=== PATIENT | male | born 1935 | race Caucasian/White ===

== ENCOUNTER 2017-01-10 02:15 | Inpatient (IN) | payer OTHER, MEDICARE ==
[~2017-01-10] VITALS: Ht 167.6 cm; Wt 72.6 kg
[~2017-01-10 02:15] MED LIST: LEVOTHYROXINE125 MCG PO; NAMZARIC 14 MG1 EACH PO
--- NOTE | 2017-01-10 08:05 | Admission Core Measures ---
Admission Meds I reviewed the following Meds: Current Medications Sig/Sah Start time Last Medication Dose Stop Time Status Admin Acetaminophen 975 MG ONCE 01/10 0000 NR (Tylenol) 01/10 2359 Cefazolin Sodium 2,000 MG ONCE 01/10 NR (Kefzol-Ancef Inj) 01/10 2359 Oxycodone HCl 10 MG ONCE 01/10 0000 NR (Roxicodone) 01/10 2359 Acute Coronary Syndrome Inclusion Criteria ACS Diagnosis No Inpatient Core Measures LDL Reminder: If No, please order W/I first 24hr of stay Congestive Heart Failure Inclusion Criteria CHF Diagnosis No Cerebrovascular accident Inclusion Criteria CVA/TIA Diagnosis No Inpatient Core Measures Bedside Swallow Eval Reminder: If BSE failed, place ST order Antithrombotic Reminder: Order Antithrombotic Medication by end of day 2 Antithrombotic Reminder: Document Reason Antithrombotic Not ordered by end of day 2 AFIB/Flutter Reminder: If Present, add to problem list AFIB/Flutter Reminder: Order Anticoag Medication for pts with AFIB/Flutter Atherosclerosis Reminder: If Present, add to problem list LDL Reminder: If No, please order W/I first 24hr of stay PT Order Reminder: If No, please order Venous thromboembolism Inpatient Core Measures VTE Risk Factors: Age > 40, Surgery No [facility] VTE prophylaxis d/t No contraindications No VTE Pharm Prophylaxis d/t No contraindications Inclusion Criteria - Per Current guidelines, there needs to be overlap - treatment for the first 5 days of Warfarin therapy. - Parenteral Anticoagulation (IV or SC) needs to be - given along with Warfarin therapy. VTE Diagnosis No VTE Type NONE VTE Confirmed by (Test) NONE Problem List As ranked by this Provider includes Assessment & Plan 1. Degenerative joint disease 2. Status post total hip replacement, left HOME MEDS Home Med List Aspirin (Ecotrin*) 81 MG TABLET.DR 1 TAB PO DAILY PROPHO (Reported) Levothyroxine Sodium 125 MCG TABLET 1 TAB PO DAILY HYPOTHYROID (Reported) Memantine HCl/Donepezil HCl (Namzaric 14 MG-10 MG Capsule) 14 MG-10 MG CAP.SPR.24 1 TAB PO DAILY DEMENTIA (Reported)
--- NOTE | 2017-01-10 08:17 | Surg Short-stay <48hrs Dis Sum ---
Visit Information Visit Dates Admission Date: 01/10/17 Discharge Date: 01/11/2017 Surgical Short Stay DC Summary Admission Diagnosis: Joint pain Final Diagnosis: Same, s/p Left total hip replacement Procedure(s): Left GEORGINA - see operative report Summary/Significant Findings: Pt underwent a Left total hip arthroplasty on 01/10 and tolerated the procedure well. In the PACU he was noted to have tachycardia to the 120 therefore an EKG was performed which revealed some questionable ST changes and cardiology - Dr Lewis was consulted. He was brought to the tele floor to be monitored overnight. His serial ekg's and troponins were negative and he was cleared for DC from a cardiology standpoint. Postoperatively he was able to void spontaneously, his pain was well controlled on oral medication and he was cleared by PT to be discharged home with services. Condition at Discharge: good Discharge Disposition: home health services Discharge instructions provided to patient/family: Yes Post discharge follow-up plan: Appointment set with Dr Schultz. FU with PCP within 2 weeks of dc
[2017-01-10] MEDS ORDERED: ASPIRIN EC325 M2 PO (08:20)
[2017-01-10] MEDS ORDERED: COLACE100 M1 PO (08:20)
[2017-01-10] MEDS ORDERED: MS CONTIN15 M2 PO (08:20)
[2017-01-10] MEDS ORDERED: DILAUDID2 M1 PO (08:20)
[2017-01-10] MEDS ORDERED: MIRALAX119 GM PO (08:20)
--- NOTE | 2017-01-10 08:24 | Patient Discharge Instructions ---
Discharge Instructions General Discharge Information You were seen/treated for: Joint pain You had these procedures: Left total hip replacement Watch for these problems: temp>101, increased redness or drainage of wounds Do not soak the wound: Yes Other wound care: Keep incisions clean and dry, may shower no bathing Special Instructions: Follow up with primary care physician within two weeks of discharge follow up with Dr Jarvis in 6 weeks. aspirin 325mg twice per day for 3 weeks watch for signs of infection (redness of the hip, worsening pain, fever or flu like illness) . call with any concerns. Diet Continue normal diet: Yes Activity Activity Self Limited: Yes Activity Limited to: Weight bear as tolerated Acute Coronary Syndrome Inclusion Criteria At DC or during hospital stay patient has or had the following: ACS DIAGNOSIS No Discharge Core Measures Meds if any: Prescribed or Continued at Discharge Meds if any: NOT Prescribed or Continued at Discharge Congestive Heart Failure Inclusion Criteria At DC or during hospital stay patient has or had the following: CHF DIAGNOSIS No Discharge Core Measures Meds if any: Prescribed or Continued at Discharge Meds if any: NOT Prescribed or Continued at Discharge Cerebrovascular accident Inclusion Criteria At DC or during hospital stay patient has or had the following: CVA/TIA Diagnosis No Discharge Core Measures Meds if any: Prescribed or Continued at Discharge Meds if any: NOT Prescribed or Continued at Discharge Venous thromboembolism Inclusion Criteria VTE Diagnosis No VTE Type NONE VTE Confirmed by (Test) NONE Discharge Core Measures - Per Current guidelines, there needs to be overlap - treatment for the first 5 days of Warfarin therapy. - If discharged on Warfarin prior to 5 days of - overlap therapy, the patient will need to be - assessed for post discharge needs including - *Post discharge parental anticoagulation - *Warfarin and/or parental anticoagulation education - *Follow up date to check INR post discharge At least 5 days overlap therapy as Inpatient No Meds if any: Prescribed or Continued at Discharge Note: Overlap Therapy is Warfarin and Anticoagulant Meds if any: NOT Prescribed or Continued at Discharge
--- NOTE | 2017-01-10 10:32 | RADIOLOGY REPORT ---
EXAMINATION: XR HIP, LEFT CLINICAL INFORMATION: Status post left hip replacement. COMPARISON: None TECHNIQUE: Two views of the left hip. FINDINGS: Prosthetic components of the left total hip arthroplasty are appropriately aligned. No periprosthetic fracture. Gas from recent surgery is present in the surrounding soft tissues. IMPRESSION: Normal postoperative appearance of the left total hip prosthesis.
--- NOTE | 2017-01-10 13:15 | Cons- Cardiology ---
General Information and HPI Consulting Request Date of Consult: 01/10/17 Requested By: XENIA CROWELL MD Reason for Consult: Question abnormal EKG in a patient immediately status post hip replacement surgery. Source of Information: patient, old records Exam Limitations: dementia History of Present Illness: The patient is an 81-year-old man who is here for elective left hip replacement. He has underlying dementia and history is difficult to obtain from the patient. However he did have extensive preoperative outpatient evaluation which is documented in his chart. His medical evaluation was done by Dr. Ben Agee on 12/24/2016. This documented that from a cardiac standpoint he had moderate valvular aortic stenosis by echo as well as dementia and some other noncardiac issues. He was also sent for cardiology evaluation which he had by Dr. Dwain Weiner on 01/07/2017. He had an echocardiogram on 11/09/2016 showing normal left ventricular systolic function and moderate aortic stenosis with peak gradient of 42 mmHg and mean gradient 21 mmHg, and a calculated valve area 1.2 cm. He had a stress test on 01/04/2017 which was a Lexiscan myocardial perfusion imaging study and was read as normal. His baseline EKG showed some PACs. Apparently during the surgery he had PACs on the monitor and there is question of some ST segment changes. In the recovery room the patient is comfortable. He has no complaints. He denies any chest pain or shortness of breath. He has very little understanding of his underlying cardiac issues and basically doesn't remember much of his medical history. Allergies/Medications Allergies: Coded Allergies: No Known Allergies (01/04/17) Home Med List: Aspirin (Ecotrin*) 325 MG TABLET.DR 1 TAB PO BID blood thinner Docusate Sodium (Colace) 100 MG CAPSULE 1 CAP PO BID constipation Hydromorphone HCl (Dilaudid) 2 MG TABLET 1-2 TAB PO Q4P PRN PAIN Levothyroxine Sodium 125 MCG TABLET 1 TAB PO DAILY HYPOTHYROID (Reported) Memantine HCl/Donepezil HCl (Namzaric 14 MG-10 MG Capsule) 14 MG-10 MG CAP.SPR.24 1 TAB PO DAILY DEMENTIA (Reported) Morphine Sulfate (Ms Contin) 15 MG TABLET.ER 1 TAB PO BID PAIN Polyethylene Glycol 3350 (Miralax) 17 GRAM/DOSE POWDER 17 GM PO DAILY constipation mix with water, juice, soda, coffee or tea Review of Systems Review of Systems: No complaints at this time in the review of systems Past History Medical History Neurological: dementia Cardiovascular: aortic stenosis Musculoskeletal: osteoarthritis Surgical History Surgical History: hip replacement Exam & Diagnostic Data Vital Signs and I&O Vital signs in the recovery room are normal Physical Exam: The patient is alert and pleasant and confused HEENT exam is normal Neck veins not distended Carotids are normal Chest is clear Heart reveals a slightly irregular rhythm, grade 2 to 3/6 systolic ejection murmur at the base Extremities reveal good pulses and no edema Labs/Sage Results: Laboratory Tests 01/10 1220 Chemistry Troponin I (<0.11 ng/ml) < 0.01 Diagnostic Data EKG Results Postoperative EKG shows sinus rhythm at a rate of 91 with moderate number of PACs. There is a small incomplete right bundle branch block. There is early precordial transition. There is minimal anterior ST depression. CXR Results Not done Assessment/Plan Assessment/Plan The patient is an 81-year-old man with dementia and underlying moderate aortic stenosis who just underwent successful left hip replacement. He was said to have some arrhythmias and possibly some ST segment changes during surgery. On evaluation in the recovery room he is hemodynamically stable. He is having some atrial ectopy on the monitor but no evidence of atrial fibrillation. He has a nonspecifically abnormal electrocardiogram. I don't think there is anything acute going on from a cardiac standpoint. However, I would like to watch him on the monitor overnight while he is undergoing his early rehabilitation. If he has nothing more than just PACs on the monitor and negative serial troponins then he can be discharged home tomorrow as per plan. Copies To: SHAWN DELA CRUZ,MILY; KYRIE DELA CRUZ,BEN Otto; SOCRATES DELA CRUZ,XENIA Consult Acknowledgment - Thank you for your consult request.
--- NOTE | 2017-01-10 13:36 | PN- Orthopedic ---
Subjective Subjective: Post op check Pt awake and alert without complaints. No pain. Has already voided spontaneously and stood next to his bed - no ambulating yet. In PACU he has been tachycardic - currently HR is 77 - Denies any sob or chest pain Objective Vital Signs and I&Os HR 77 BP 112/68 RR 16 Sat 97% on 3LNC Physical Exam: General: alert and oriented times three Chest: clear anteriorly bilaterally, irr/irr Abd: soft, good bs Ext: warm, no edema, positive sensate, no calf tenderness, 5/5 KARINA BLE Wound: dressed, dry, ice pack in place Assessment/Plan Assessment/Plan 81 yo male s/p L THR post op tachycardia/PVC's Cardiology consult - follow up serial troponins and ekg in am Place pt on tele overnight All other orders per routine ASA 325mg po bid for dvt ppx ALPS/MELISA's WBAT dc planning Core Measures/Miscellaneous Venous Thromboembolism VTE Risk Factors: Age > 40, Surgery VTE Contraindications: No Contraindications VTE Diagnosis: No VTE Type: NONE VTE Confirmed by (Test): NONE Beta Gissel Is Beta Gissel a Home Med? No Antibiotics Is Patient on Antibiotics? No
--- NOTE | 2017-01-10 13:43 | Operative Report ---
Operative/Inv Procedure Report Surgery Date: 01/10/17 Name of Procedure: Left total hip replacement Pre-Operative Diagnosis: Primary left hip DJD Post-Operative Diagnosis: Same Estimated Blood Loss: 300 Surgeon/Brown Stock Washer: SCORATES DELA CRUZ,XENIA Tariq Anesthesia: general endotracheal tube Operative/Procedure Note Note: Description of Procedure: The patient was taken to the operating room and positively identified. After induction of general anesthesia and administration of appropriate pre-operative antibiotics, the patient was positioned supine on the operating room table and all bony prominences were well padded. After performing a surgical timeout, the left lower extremity was prepped and draped in the usual sterile fashion. A direct anterior approach was made to the left hip. The incision was carried sharply through superficial soft tissues to the level of the fascia. Meticulous hemostasis was maintained with Bovie electocautery. The fascia over the tensor fascia sumi muscle was opened sharply and the interval between the TFL and the sartorius was entered bluntly taking care to stay lateral to the lateral femoral cutaneous nerve. Retractors were placed around the femoral neck and the pericapsular fat was identified. The ascending branches of the lateral femoral circumflex vessels were identified and carefully coagulated. The pericapsular fat and anterior capsule were then resected. A napkin ring osteotomy was performed and the femoral head was removed without difficulty. Attention was then turned to the acetabulum. After appropriate placement of retractors, the acetabulum was exposed. Soft tissue was cleaned from the acetabular margin and notch. Overhanging osteophytes were removed and the teardrop was exposed. The acetabulum was then sequentially reamed to accept a 56 mm Henry Tritanium hemispherical solid back shell. This was impacted into place in the appropriate position and fitted with a 36 mm Trident X3 zero degree polyethylene insert. Attention was then turned to the femur. After performing the appropriate ligament releases, the proximal femur was exposed. It was then sequentially broached to accept a size 4 [place] Anato stem. This was trialed for leg length and stability. The trial component was removed and the final component was impacted into place. The trunnion was carefully cleaned and fit with a 36 mm, + 0 Biolox delta ceramic femoral head. The hip was reduced and put through a full range of motion and found to be stable. The articular space was then irrigated with sterile saline. The periarticular soft tissues were infilitrated with Marcaine. The fascial layer was closed with interrupted #1 vicryl suture and the skin was re-approximated with interrupted 2 -0 vicryl. The skin was closed with a running 3-0 V-Lock suture. Steri-strips and a sterile dressing were applied. The patient was awakened and taken to the recovery room in satisfactory condition.
[2017-01-10 14:53] VITALS: BP 134/70
[2017-01-11 00:52] VITALS: BP 142/68
[2017-01-11 04:11] LABS: ABSOLUTE BASOPHIL COUNT 0 /CUMM (0.0-0.2); ABSOLUTE EOSINOPHIL COUNT 0.1 /CUMM (0.0-0.7); ABSOLUTE GRANULOCYTE CT 7.1 /CUMM (1.4-6.5); ABSOLUTE LYMPH COUNT 1.1 /CUMM (1.2-3.4); ABSOLUTE MONOCYTE COUNT 0.8 /CUMM (0.10-0.60); BASOPHIL % 0.3 % (0.0-2.0); EOSINOPHIL % 0.6 % (0-5); GRANULOCYTE % 78.6 % (42.2-75.2); HEMATOCRIT 40.8 % (42-52); MEAN CORPUSCULAR HGB CONC 33.4 G/DL (33.0-37.0); MEAN CORPUSCULAR VOLUME 95.8 FL (80.0-94.0); MEAN PLATELET VOLUME 9.4 FL (7.4-10.4); PLATELET COUNT 112 /CUMM (130-400); RBC DISTRIBUTION WIDTH 13.9 % (11.5-14.5); RED BLOOD CELL CT 4.26 /CUMM (4.70-6.10)
[2017-01-11 08:00] VITALS: BP 138/74
--- NOTE | 2017-01-11 08:47 | PN- Orthopedic ---
See Addendum Subjective Subjective: 81-year-old male postop day 1 status post left anterior approach total hip arthroplasty. No acute events overnight. Denies any chest pain. No palpitations, no shortness of breath. His pain is controlled. He has yet to be up and ambulatory with physical therapy. His appetite is good. No nausea no vomiting. Objective Vital Signs and I&Os Vital Signs Date Time Temp Pulse Resp B/P Pulse O2 O2 Flow FiO2 Ox Delivery Rate 01/11 08 Room Air 01/11 0800 98.6 69 18 138/74 96 Room Air 01/11 0052 97.7 67 18 142/68 97 Room Air 01/10 1501 Room Air 01/10 1453 97.5 64 18 134/70 96 Room Air Intake & Output 01/11 1600 01/11 0800 01/11 0000 01/10 1600 01/10 0800 01/10 0000 Intake Total 820 1040 Output Total 600 350 Balance 220 690 Intake, IV 700 600 Intake, Oral 120 440 Number 0 Bowel Movements Output, Urine 600 350 Patient 160 lb Weight Physical Exam: Well-developed well-nourished no apparent distress. HEENT: Atraumatic, extraocular motion intact Neck: Supple, no lymphadenopathy Respiratory: No respiratory distress Extremities: No edema RIGHT lower extremity hip dressing in place, Dressing clean dry and intact with minimal bloody staining Mild thigh edema No signs of infection. No shortening or rotation Hip range of motion is limited and without unexpected pain Neurovascularly intact distally Bilateral calves are supple, nontender. Neuro: Alert and oriented x3 Psych: Mood affect normal, normal memory normal judgment. Skin: Warm and dry, no rash on exposed skin Results Last 48 Hours of Labs: Laboratory Tests 01/11 01/10 01/10 0330 1900 1220 Chemistry Sodium (137 - 145 mmol/L) 136 L Potassium (3.5 - 5.1 mmol/L) 4.8 Chloride (98 - 107 mmol/L) 99 Carbon Dioxide (22 - 30 mmol/L) 27 Anion Gap (5 - 16) 10 BUN (9 - 20 mg/dL) 20 Creatinine (0.7 - 1.2 mg/dL) 1.3 H Estimated GFR (>60 ml/min) 53 L BUN/Creatinine Ratio (7 - 25 %) 15.4 Troponin I (<0.11 ng/ml) 0.08 0.04 < 0.01 Hematology CBC w Diff NO MAN DIFF REQ WBC (4.8 - 10.8 /CUMM) 9.0 RBC (4.70 - 6.10 /CUMM) 4.26 L Hgb (14.0 - 18.0 G/DL) 13.6 L Hct (42 - 52 %) 40.8 L MCV (80.0 - 94.0 FL) 95.8 H MCH (27.0 - 31.0 PG) 32.0 H RDW (11.5 - 14.5 %) 13.9 Plt Count (130 - 400 /CUMM) 112 L MPV (7.4 - 10.4 FL) 9.4 Gran % (42.2 - 75.2 %) 78.6 H Lymphocytes % (20.5 - 51.1 %) 12.2 L Monocytes % (1.7 - 9.3 %) 8.3 Eosinophils % (0 - 5 %) 0.6 Basophils % (0.0 - 2.0 %) 0.3 Absolute Granulocytes (1.4 - 6.5 /CUMM) 7.1 H Absolute Lymphocytes (1.2 - 3.4 /CUMM) 1.1 L Absolute Monocytes (0.10 - 0.60 /CUMM) 0.8 H Absolute Eosinophils (0.0 - 0.7 /CUMM) 0.1 Absolute Basophils (0.0 - 0.2 /CUMM) 0 PUBS MCHC (33.0 - 37.0 G/DL) 33.4 EKG done 3 AM this morning, sinus arrhythmia, no acute changes from previous. Assessment/Plan Assessment/Plan Postop day 1 status post left total hip arthroplasty anterior approach. -Orthopedically stable -Continue current home medications -GI prophylaxis -Aspirin 325 mg by mouth twice a day for DVT prophylaxis -Out of bed with physical therapy today, weightbearing as tolerated -Regular diet -DC IV fluids -Dressing change tomorrow -Postoperative antibiotics for prophylaxis completed -Appreciate cardiology input, serial troponins negative and EKGs unremarkable. -Plan hopefully for discharge to home tomorrow with home health services Core Measures/Miscellaneous Venous Thromboembolism VTE Risk Factors: Age > 40, Surgery VTE Contraindications: No Contraindications VTE Diagnosis: No VTE Type: NONE VTE Confirmed by (Test): NONE Beta Gissel Is Beta Gissel a Home Med? No Antibiotics Is Patient on Antibiotics? No
--- NOTE | 2017-01-11 10:15 | PN- Cardiology ---
Subjective Subjective: The patient is awake and alert and sitting in a chair. He is somewhat confused but pleasant and conversant. He is not having any pain. On the monitor he is in sinus rhythm with frequent PACs, which I believe is his baseline. The EKG this morning shows sinus rhythm with several PACs and an incomplete right bundle branch block and is otherwise unremarkable. His troponins went from less than 0.01 to 0.03 to 0.08. These are all within the negative range. Objective Vital Signs and I&Os Vital Signs Date Time Temp Pulse Resp B/P Pulse O2 O2 Flow FiO2 Ox Delivery Rate 01/11 0800 Room Air 01/11 0800 98.6 69 18 138/74 96 Room Air 01/11 0052 97.7 67 18 142/68 97 Room Air 01/10 1501 Room Air 01/10 1453 97.5 64 18 134/70 96 Room Air Intake & Output 01/11 1600 01/11 0800 01/11 0000 01/10 1600 01/10 0800 01/10 0000 Intake Total 820 1040 Output Total 600 350 Balance 220 690 Intake, IV 700 600 Intake, Oral 120 440 Number 0 Bowel Movements Output, Urine 600 350 Patient 160 lb Weight Physical Exam: He is in no distress HEENT exam is normal Chest is clear Heart reveals grade 2 to 3/6 systolic ejection murmur at the base and apex Extremities no edema Current Medications: Current Medications Sig/Ash Start time Last Medication Dose Route Stop Time Status Admin Acetaminophen 650 MG Q4P PRN 01/10 1415 AC PO Acetaminophen 975 MG ONCE 01/10 0000 DC PO 01/10 2359 Aspirin 325 MG BID 01/10 1000 AC 01/11 PO 0917 Cefazolin Sodium 2,000 MG Q8 01/10 2200 DC 01/11 Sodium Chloride 100 ML IV 01/11 0629 0529 Cefazolin Sodium 2,000 MG ONCE 01/10 0000 DC IV 01/10 2359 Docusate Sodium 100 MG BID 01/10 1000 AC 01/11 PO 0918 Donepezil HCl 10 MG DAILY 01/11 1000 DC PO Donepezil HCl 10 MG DAILY 01/11 1000 AC 01/11 PO 0918 Hydromorphone HCl 2 MG Q4P PRN 01/10 1415 AC 01/11 PO 0636 Hydromorphone HCl 4 MG Q4P PRN 01/10 1415 AC PO Levothyroxine Sodium 0.125 MG DAILY 01/11 1000 DC PO Levothyroxine Sodium 0.125 MG DAILY 01/11 1000 AC 01/11 PO 0641 Memantine 5 MG BID 01/11 1000 DC PO Memantine 5 MG BID 01/10 2200 DC PO Memantine 5 MG BID 01/10 2200 AC 01/11 PO 0918 Morphine Sulfate 2 MG Q3P PRN 01/10 1415 AC IV Ondansetron HCl 4 MG Q6P PRN 01/10 1415 AC IV Oxycodone HCl 10 MG ONCE 01/10 0000 DC PO 01/10 2359 Polyethylene Glycol 17 GM DAILY 01/10 1000 AC 01/11 PO 0919 Potassium Chloride 20 MEQ .[id number] 01/10 1415 DC 01/11 Dextrose/Sodium 1,000 ML IV 0638 Chloride Results Last 48 Hrs of Labs/Mics: Laboratory Tests 01/11/17 0330: Anion Gap 10, Estimated GFR 53 L, BUN/Creatinine Ratio 15.4, Troponin I 0.08, CBC w Diff NO MAN DIFF REQ, RBC 4.26 L, MCV 95.8 H, MCH 32.0 H, RDW 13.9, MPV 9.4, Gran % 78.6 H, Lymphocytes % 12.2 L, Monocytes % 8.3, Eosinophils % 0.6, Basophils % 0.3, Absolute Granulocytes 7.1 H, Absolute Lymphocytes 1.1 L, Absolute Monocytes 0.8 H, Absolute Eosinophils 0.1, Absolute Basophils 0, PUBS MCHC 33.4 01/10/17 1900: Troponin I 0.04 01/10/17 1220: Troponin I < 0.01 Assessment/Plan Assessment/Plan The patient is stable. He is having PACs but this is his baseline. His troponins did trend upwards slightly but still in the negative range and I don't believe this represents any significant myocardial ischemia. From a cardiac standpoint the patient can be discharged. Continue telemetry? Not applicable
[2017-01-11] MEDS ORDERED: ASPIRIN EC81 M1 PO (13:51)
== END 2017-01-11 15:10 | disposition home health service (06) | DRG 470 ==
LOC: ENRESERVTM → ENRESERVDT → CANRESERV → 1NO 02:15 → SDA 02:15 → ENPENDDIS 02:15 → EDBEDREQ 12:46 → 2NB 13:53 → 1NO 14:39
PROVIDERS: Physician Assistant Surgical; ADMIT Orthopaedic Surgery
PROC: 0SRB04A Replacement of Left Hip Joint with Ceramic on Polyethylene Synthetic Substitute, Uncemented, Open Approach (ICD-10-PCS; principal; 2017-01-10)
DX: M16.12 Unilateral primary osteoarthritis, left hip (principal); G30.1 Alzheimer's disease with late onset; I35.0 Nonrheumatic aortic (valve) stenosis; F03.90 Unspecified dementia, unspecified severity, without behavioral disturbance, psychotic disturbance, mood disturbance, and anxiety; I97.89 Other postprocedural complications and disorders of the circulatory system, not elsewhere classified; I45.10 Unspecified right bundle-branch block; R00.0 Tachycardia, unspecified; F02.80 Dementia in other diseases classified elsewhere, unspecified severity, without behavioral disturbance, psychotic disturbance, mood disturbance, and anxiety; E03.9 Hypothyroidism, unspecified; Z85.828 Personal history of other malignant neoplasm of skin; M10.9 Gout, unspecified
CPT/HCPCS: 1NP; 36415; 73502-LT; 82436; 88304; 93005; 93010; 97110-GO; 97116-GO; 97161-GP; C9399; J0690; J0735; J2405; J7042